=== PATIENT | male | born 1965 | race Caucasian/White ===

== ENCOUNTER → 2018-03-24 | Outpatient (CLI) | payer OTHER | END | disposition home or self-care (01) | LOC: PCVCCLINIC 14:37 | PROVIDERS: ATTEND Internal Medicine Cardiovascular Disease | DX: I10 Essential (primary) hypertension (principal); E78.00 Pure hypercholesterolemia, unspecified; G47.39 Other sleep apnea; Z87.898 Personal history of other specified conditions; Z82.49 Family history of ischemic heart disease and other diseases of the circulatory system; Z95.810 Presence of automatic (implantable) cardiac defibrillator; Z79.82 Long term (current) use of aspirin | CPT/HCPCS: 93282; G0463 ==

== ENCOUNTER → 2019-01-17 | Outpatient (CLI) | payer OTHER ==
--- NOTE | 2019-01-17 17:42 | PCVCIMAG ---
APPROVED REPORT Study performed: 01/17/2019 16:02:57 Exam: Stress Echocardiogram Indication: Syncope Patient Location: Echo lab Stress Nurse: Celeste Veliz RN Status: routine Ht: 5 ft 11 in HR: 68 bpm BP: 122/85 mmHg Medical History Medical History: AICD Procedure The patient underwent an Exercise Stress Test using the Peewee Protocol. Blood pressure, heart rate, and EKG were monitored. An Echocardiogram was performed by injection mold tooling technician in four stages in quad fashion. At peak stress, four selected images were obtained and placed side by side with resting images for comparison. Stress Test Details Stress Test: Exercise stress testing was performed using a Peewee protocol. HR Resting HR: 68 bpmMax Heart Rate (APMHR): 165 bpm Max HR Achieved: 160 bpmTarget HR (85% APMHR): 140 bpm % of APMHR: 96 Recovery HR: 90 bpm HR response to stress: Normal HR response to stress BP Resting BP: 122/85 mmHg Max BP: 184/85 mmHg Recovery BP: 90/ mmHg BP response to stress: Normal blood pressure response to stress. ECG Resting ECG: Sinus Rhythm Stress ECG: Sinus Rhythm Recovery ECG: Sinus Rhythm Clinical Reason for Termination: Maximal effort Exercise duration: 9 min 52 sec Highest Stage Achieved: Stage 4: 4.2 mph at 16% grade. Exercise capacity: 12.90 METs Overall Exercise Capacity for Age: Normal Pre-Stress Echo The resting Echocardiogram showed normal left ventricular contractility with an estimated Ejection Fraction of about 55-60%. Normal wall motion in all segments on baseline images. Post-Stress Echo The stress Echocardiogram showed normal left ventricular contractility with an estimated Ejection Fraction of about 60-65%. Normal augmentation of wall motion in all segments on post stress images. Clinical No clinical or ECG evidence for ischemia. Conclusion Clinical Response: Non-ischemic Exercise Capacity: Average Stress ECG Response: Non-ischemic Stress Echo Images: Non-ischemic The left ventricle is normal in size and wall thickness in both the rest and stress images. Trace mitral regurgitation. No other valvular abnormalities. AICD leads noted in right ventricle and right atrium. Other Information Study Quality: Adequate <Conclusion> The left ventricle is normal in size and wall thickness in both the rest and stress images. Trace mitral regurgitation. No other valvular abnormalities. AICD leads noted in right ventricle and right atrium.
== END | disposition home or self-care (01) ==
LOC: PCVCIMAG 15:12
PROVIDERS: ATTEND Internal Medicine Cardiovascular Disease
DX: I10 Essential (primary) hypertension (principal); R55 Syncope and collapse; E78.00 Pure hypercholesterolemia, unspecified; R06.02 Shortness of breath; Z87.898 Personal history of other specified conditions
CPT/HCPCS: 93325; 93351